=== PATIENT | male | born 1990 | race Caucasian/White ===

== ENCOUNTER 2017-10-22 07:33 | Emergency (ER) | payer OTHER ==
[~2017-10-22] VITALS: Ht 180.3 cm; Wt 72.6 kg
[2017-10-22 07:40] VITALS: BP 123/78
--- NOTE | 2017-10-22 08:03 | ED ANKLE/FOOT INJURY COMPLAINT ---
History of Present Illness General Chief Complaint: Foot or Ankle Injury Stated Complaint: ANKLE PAIN Source: patient, family Exam Limitations: no limitations Vital Signs & Intake/Output Vital Signs & Intake/Output Vital Signs Date Time Temp Pulse Resp B/P B/P Pulse O2 O2 Flow FiO2 Mean Ox Delivery Rate 10/22 0740 97.0 72 20 123/78 98 Room Air Allergies Coded Allergies: No Known Drug Allergies (Intermediate, NONE 10/22/17) Triage Note: C/O R ANKLE PAIN SINCE LAST PM, OCCURRED WHILE JUMPING UP AND DOWN DANCING. TOOK MOTRIN 800 MG AT 0700. Triage Nurses Notes Reviewed? yes HPI: Patient was dancing last night when he rolled his right ankle. Patient caught himself before he fell to the ground. Patient sat for a few minutes and got up and continued dancing. This morning he got up and the outside portion of his ankle swollen and tender to the touch. Pain increases with ambulation. There is no radiation of pain. The pain is aching in nature. He rates the pain as moderate on the scale. Patient denies any other injury. There is no numbness or tingling. Past History Travel History Traveled to [place] past 21 day No Medical History Any Pertinent Medical History? none Neurological: NONE EENT: NONE Cardiovascular: NONE Respiratory: NONE Gastrointestinal: NONE Hepatic: NONE Renal: NONE Musculoskeletal: NONE Psychiatric: NONE Endocrine: NONE Surgical History Surgical History: non-contributory Psychosocial History Tobacco Use: Never used ETOH Use: occasional use Illicit Drug Use: denies illicit drug use Family History Hx Contributory? No Review of Systems Review of Systems Constitutional: Reports: no symptoms. Respiratory: Reports: no symptoms. Cardiovascular: Reports: no symptoms. Musculoskeletal: Reports: see HPI, joint pain, joint swelling. Neurological/Psychological: Reports: no symptoms, see HPI. Immunologic/Allergic: Reports: no symptoms. Physical Exam Physical Exam General Appearance: well developed/nourished, alert, awake, mild distress Head: atraumatic, normal appearance Eyes: Bilateral: PERRL, EOMI. Neck: normal inspection, supple, no midline tenderness Leg/Knee/Thigh Left: normal range of motion, normal inspection Leg/Knee/Thigh Right: normal range of motion, normal inspection Ankle Right: normal range of motion, pain, soft tissue tenderness, swelling Foot Right: normal inspection, normal range of motion Neuro/Vascular: normal motor function, normal sensation Tendon: normal tendon function Psychiatric: awake, alert, oriented x 3 Skin: intact, normal color, warm/dry Progress Differential Diagnosis: fracture, dislocation, sprain, contusion Plan of Care: Orders Procedure Date/time Status Durable Medical Equipment 10/22 817 Active Diagnostic Imaging: Viewed by Me: Radiology Read. Discussed w/RAD: Radiology Read. Radiology Impression: PATIENT: STEFAN BLEDSOE PRESENT AGE: 26 PATIENT ACCOUNT NO: [id number] : 88 LOCATION: [facility] ORDERING PHYSICIAN: Domingo Jhaveri MD SERVICE DATE: 10/22/17 EXAM TYPE: RAD - XRY-ANKLE 3 OR MORE VIEWS R EXAMINATION: XR ANKLE, RIGHT CLINICAL INFORMATION: Complaining of right ankle pain since last p.m. after jumping. COMPARISON: None TECHNIQUE: AP, lateral, and mortise views of the right ankle. FINDINGS: Prominent lateral malleolar soft tissue swelling is seen with no evidence of acute fracture or dislocation. The ankle mortise is symmetric and intact. No significant ankle joint effusion is seen. Bony structures are unremarkable. IMPRESSION: Lateral malleolar soft tissue swelling. No acute fracture or dislocation. DICTATED BY: Kassidy Olvera MD DATE/TIME DICTATED:10/22/17811 HEAD CHAR FILTER TANK TENDER:ANGELA DATE/TIME TRANSCRIBED:10/22/17811 CONFIDENTIAL, DO NOT COPY WITHOUT APPROPRIATE AUTHORIZATION. <Electronically signed in Other Vendor System> SIGNED BY: Kassidy Olvera MD 10/22/17816 Departure Departure Disposition: HOME OR SELF CARE Condition: Stable Clinical Impression Primary Impression: Right ankle sprain Referrals: Gerber Jean DPM Patient Has No Primary Care Dr (PCP/Family) Additional Instructions: WEAR BOOT FOR COMFORT FOLLOW UPWITH DR. JEAN RETURN IF SYMPTOMS WORSEN OR FOR ANY CONCERNS Departure Forms: Customer Survey General Discharge Information Procedures Splinting Location: RT ANKLE Manual Alignment Performed: No Pre-Made Type: ANKLE STIRUP Splint: ANKLESTIRUP Splint Applied By: splint applied by other Pre-Proc Neuro Vasc Exam: normal Post-Proc Neuro Vasc Exam: normal
--- NOTE | 2017-10-22 08:17 | RADIOLOGY REPORT ---
EXAMINATION: XR ANKLE, RIGHT CLINICAL INFORMATION: Complaining of right ankle pain since last p.m. after jumping. COMPARISON: None TECHNIQUE: AP, lateral, and mortise views of the right ankle. FINDINGS: Prominent lateral malleolar soft tissue swelling is seen with no evidence of acute fracture or dislocation. The ankle mortise is symmetric and intact. No significant ankle joint effusion is seen. Bony structures are unremarkable. IMPRESSION: Lateral malleolar soft tissue swelling. No acute fracture or dislocation.
== END 2017-10-22 08:25 ==
LOC: ERH 07:33
DX: S93.401A Sprain of unspecified ligament of right ankle, initial encounter (principal); X58.XXXA Exposure to other specified factors, initial encounter; Y93.41 Activity, dancing; Y92.9 Unspecified place or not applicable
CPT/HCPCS: 73610-RT